=== PATIENT | female | born 1970 | race Caucasian/White ===

== ENCOUNTER 2017-03-31 16:05 | Emergency (ER) | payer MEDICAID ==
[2017-03-31] MEDS ORDERED: ONDANSETRON 4 MG/2 ML VIAL IVP ONE ×2 (16:47→17:44)
[2017-03-31] MEDS ORDERED: NS 1,000 ML IV ONE (16:47)
[2017-03-31 17:02] LABS: % IMMATURE GRANULYOCYTES 0.9 % (0.0-1.1); ABSOLUTE IMMATURE GRANULOCYTES 0.06 10^3/uL (0.00-0.10); ADD DIFF? NO; ADD MORPH? NO; ADD SCAN? NO; ATYPICAL LYMPHOCYTE FLAG 10 (0-99); FRAGMENT RBC FLAG 0 (0-99); HEMATOCRIT 43.2 % (38.0-47.0); HEMOGLOBIN 14.7 g/dL (12.6-16.3); LEFT SHIFT FLG 0 (0-99); LIPEMIA HEMOLYSIS FLAG 90 (0-99); MEAN CELL HEMOGLOBIN 29.6 pg (27.9-34.1); MEAN CELL VOLUME 87.1 fL (81.5-99.8); MEAN PLATELET VOLUME 11.2 fL (8.7-11.7); PLATELET CLUMPS FLAG 0 (0-99); PLATELET COUNT 233 10^3/uL (150-400); RED BLOOD CELL COUNT 4.96 10^6/uL (4.18-5.33); RED CELL DISTRIBUTION WIDTH 13.1 % (11.5-15.2)
[2017-03-31 17:26] LABS: ALANINE AMINOTRANSFERASE 58 IU/L (9-52); ALKALINE PHOSPHATASE 78 IU/L (38-126); ANION GAP 8 mEq/L (8-16); ASPARTATE AMINOTRANSFERASE 33 IU/L (14-46); BILIRUBIN,TOTAL 0.5 mg/dL (0.1-1.4); BILIRUBIN-CONJUGATED 0.1 mg/dL (0.0-0.5); BILIRUBIN-UNCONJUGATED 0.4 mg/dL (0.0-1.1); CALCIUM 9.2 mg/dL (8.5-10.4); CARBON DIOXIDE 25 mEq/l (22-31); CHLORIDE 106 mEq/L (97-110); CREATININE 0.8 mg/dL (0.6-1.0); GLOMERULAR FILTRATION RATE > 60; GLUCOSE 84 mg/dL (70-100); SODIUM 139 mEq/L (134-144); TOTAL PROTEIN 7.6 g/dL (6.3-8.2)
[2017-03-31] MEDS ORDERED: ONDANSETRON 4 MG/2 ML VIAL ONE (17:45)
[2017-03-31 17:49] VITALS: TEMP 98.4; O2SAT 94
[2017-03-31 17:53] LABS: COLOR YELLOW; LEUKOCYTE ESTERASE,URINE NEGATIVE (NEGATIVE); NITRITE,URINE NEGATIVE (NEGATIVE)
[2017-03-31] MEDS ORDERED: IOPAMIDOL (ISOVUE-300) 100 ML BTL ONE ×2 (17:54→18:19)
[2017-03-31 18:06] LABS: MUCUS 4+ /lpf (NONE-1+)
--- NOTE | 2017-03-31 19:02 | EDPHY ---
H & P Stated Complaint: Abd pain, constipation x 1 week;general body aches for "a long time" HPI/ROS: Chief complaint: Abdominal pain History of present illness: This is a 46-year-old female who presents to the emergency department for evaluation of abdominal pain. Patient reports the onset of pain over the last week. She describes diffuse pain. She has had nausea but no vomiting. There has been some constipation. She denies precipitating factors. She denies other associated signs or symptoms including no fevers, no urinary symptoms. She does report she has a hernia some where in her abdomen and is concerned this is part of the pain. She denies other associated signs or symptoms. Review of systems: A 10 point review of systems was obtained and other than described above was negative - Personal History LMP (Females 10-55): Over 28 Days Ago Current Tetanus Diphtheria and Acellular Pertussis (TDAP): Yes Tetanus Vaccine Date: 2011 - Medical/Surgical History Hx Asthma: No Hx Chronic Respiratory Disease: No Hx Diabetes: No Hx Cardiac Disease: No Hx Renal Disease: No Hx Cirrhosis: No Hx Alcoholism: No Hx HIV/AIDS: No Hx Splenectomy or Spleen Trauma: No Other PMH: c section x 2, tonsillectomy, R finger fracture, IBS. depression/ anxiety - Social History Smoking Status: Current every day smoker - Physical Exam Exam: General Appearance: Alert, nontoxic. Eyes: Pupils equal and round no pallor or injection. ENT, Mouth: Mucous membranes moist. Respiratory: There are no retractions, lungs are clear to auscultation. Cardiovascular: Regular rate and rhythm. Gastrointestinal: Bowel sounds are normal. Abdomen is soft, nondistended and nontender to palpation. No masses or hernias are appreciated. Neurological: Alert and oriented x4. Strength and sensation intact and symmetrical. Skin: Warm and dry, no rashes. Musculoskeletal: Neck is supple nontender. Extremities are symmetrical, full range of motion. Psychiatric: Patient is oriented X 3, there is no agitation. Constitutional: Initial Vital Signs Temperature (C) 36.7 C 03/31/17 16:17 Heart Rate 72 03/31/17 16:17 Respiratory Rate 18 03/31/17 16:17 Blood Pressure 96/72 L 03/31/17 16:17 O2 Sat (%) 95 03/31/17 16:17 O2 Delivery Mode Room Air Allergies/Adverse Reactions: aspirin Allergy (Severe, Verified 03/31/17 16:16) hard to breathe Home Medications: Medication Instructions Recorded Sertraline HCl [Zoloft 50mg (*)] 50 mg PO DAILY 03/31/17 hydrOXYzine HCL [Vistaril] 50 mg PO 03/31/17 Medical Decision Making - Diagnostics Imaging Results: Imaging Impressions Abdomen CT 03/31/17 17:48 Impression: 1. Periumbilical fat-containing hernia, without bowel extending through the hernia defect. 2. No CT evidence of appendicitis, abscess, or bowel obstruction. 3. No evidence of constipation or focal fluid collections. 4. Benign calcified granuloma in the left lower lobe. 5. Calcified uterine leiomyoma. Findings and recommendations discussed with Emergency Department physician, KERRI Pereira, at 1835 hours, on March 31, 2017. Final report concurs with initial preliminary interpretation. Imaging: Discussed imaging studies w/ crew caller Radiologist ED Course/Re-evaluation: Patient seen under the supervision of my secondary supervising physician Dr. Chester Brady. Patient presents to the emergency department for 1 week of abdominal pain. On presentation she is nontoxic. She is afebrile and vital signs are stable. Initial abdominal exam is benign. Serial abdominal exams are performed in the ER and remained benign. Blood studies and urinalysis largely unremarkable. CT scan of the abdomen and pelvis with IV contrast is pursued, a small periumbilical hernia containing only fat is noted, no other acute findings are noted. My suspicion for serious pathology requiring further emergency department intervention or inpatient management is low. Patient will be discharged home. Home care is discussed. She is referred to General surgery for further evaluation and care and also asked to follow up with a primary care doctor for recheck. Referral information is provided. Strict return precautions are given. Patient voiced understanding and agreement with plan. Differential Diagnosis: Included but not limited to gastritis, gastroenteritis, biliary tract disease, pancreatitis, colitis, appendicitis, bowel obstruction, hernia with associated complications - Data Points Laboratory Results: Laboratory Results 03/31/17 16:50 03/31/17 16:50 03/31/17 03/31/17 03/31/17 17:22 16:50 16:50 WBC RBC Hgb Hct MCV MCH MCHC RDW Plt Count MPV Neut % (Auto) Lymph % (Auto) Banks % (Auto) Eos % (Auto) Baso % (Auto) Nucleat RBC Rel Count Absolute Neuts (auto) Absolute Lymphs (auto) Absolute Monos (auto) Absolute Eos (auto) Absolute Basos (auto) Absolute Nucleated RBC Immature Gran % Immature Gran # Sodium 139 mEq/L mEq/L (134-144) Potassium 4.0 mEq/L mEq/L (3.5-5.2) Chloride 106 mEq/L mEq/L (97-110) Carbon Dioxide 25 mEq/l mEq/l (22-31) Anion Gap 8 mEq/L mEq/L (8-16) BUN 16 mg/dL mg/dL (7-23) Creatinine 0.8 mg/dL mg/dL (0.6-1.0) Estimated GFR > 60 Glucose 84 mg/dL mg/dL (70-100) Calcium 9.2 mg/dL mg/dL (8.5-10.4) Total Bilirubin 0.5 mg/dL mg/dL (0.1-1.4) Conjugated Bilirubin 0.1 mg/dL mg/dL (0.0-0.5) Unconjugated Bilirubin 0.4 mg/dL mg/dL (0.0-1.1) AST 33 IU/L IU/L (14-46) ALT 58 IU/L H IU/L (9-52) Alkaline Phosphatase 78 IU/L IU/L (38-126) Total Protein 7.6 g/dL g/dL (6.3-8.2) Albumin 4.0 g/dL g/dL (3.5-5.0) Lipase 30.0 IU/L IU/L (23-300) Beta HCG, Qual NEGATIVE Urine Color YELLOW Urine Appearance HAZY Urine pH 6.0 (5.0-7.5) Ur Specific Compton 1.024 (1.002-1.030) Urine Protein NEGATIVE (NEGATIVE) Urine Ketones NEGATIVE (NEGATIVE) Urine Blood NEGATIVE (NEGATIVE) Urine Nitrate NEGATIVE (NEGATIVE) Urine Bilirubin NEGATIVE (NEGATIVE) Urine Urobilinogen 2.0 EU H EU (0.2-1.0) Ur Leukocyte Esterase NEGATIVE (NEGATIVE) Urine RBC 1-3 /hpf /hpf (0-3) Urine WBC 1-3 /hpf /hpf (0-3) Ur Epithelial Cells TRACE /lpf /lpf (NONE-1+) Urine Mucus 4+ /lpf H /lpf (NONE-1+) Urine Glucose NEGATIVE (NEGATIVE) 03/31/17 16:50 WBC 6.61 10^3/uL 10^3/uL (3.80-9.50) RBC 4.96 10^6/uL 10^6/uL (4.18-5.33) Hgb 14.7 g/dL g/dL (12.6-16.3) Hct 43.2 % % (38.0-47.0) MCV 87.1 fL fL (81.5-99.8) MCH 29.6 pg pg (27.9-34.1) MCHC 34.0 g/dL g/dL (32.4-36.7) RDW 13.1 % % (11.5-15.2) Plt Count 233 10^3/uL 10^3/uL (150-400) MPV 11.2 fL fL (8.7-11.7) Neut % (Auto) 66.0 % % (39.3-74.2) Lymph % (Auto) 24.4 % % (15.0-45.0) Banks % (Auto) 6.5 % % (4.5-13.0) Eos % (Auto) 1.7 % % (0.6-7.6) Baso % (Auto) 0.5 % % (0.3-1.7) Nucleat RBC Rel Count 0.0 % % (0.0-0.2) Absolute Neuts (auto) 4.37 10^3/uL 10^3/uL (1.70-6.50) Absolute Lymphs (auto) 1.61 10^3/uL 10^3/uL (1.00-3.00) Absolute Monos (auto) 0.43 10^3/uL 10^3/uL (0.30-0.80) Absolute Eos (auto) 0.11 10^3/uL 10^3/uL (0.03-0.40) Absolute Basos (auto) 0.03 10^3/uL 10^3/uL (0.02-0.10) Absolute Nucleated RBC 0.00 10^3/uL 10^3/uL (0-0.01) Immature Gran % 0.9 % % (0.0-1.1) Immature Gran # 0.06 10^3/uL 10^3/uL (0.00-0.10) Sodium Potassium Chloride Carbon Dioxide Anion Gap BUN Creatinine Estimated GFR Glucose Calcium Total Bilirubin Conjugated Bilirubin Unconjugated Bilirubin AST ALT Alkaline Phosphatase Total Protein Albumin Lipase Beta HCG, Qual Urine Color Urine Appearance Urine pH Ur Specific Compton Urine Protein Urine Ketones Urine Blood Urine Nitrate Urine Bilirubin Urine Urobilinogen Ur Leukocyte Esterase Urine RBC Urine WBC Ur Epithelial Cells Urine Mucus Urine Glucose Medications Given: Discontinued Medications Sodium Chloride (Ns) 1,000 mls @ 0 mls/hr IV ONCE ONE; Wide Open PRN Reason: Protocol Stop: 03/31/17 16:48 Last Admin: 03/31/17 17:14 Dose: 1,000 mls Ondansetron HCl (Zofran) 4 mg IVP EDNOW ONE Stop: 03/31/17 16:48 Last Admin: 03/31/17 17:14 Dose: 4 mg Ondansetron HCl (Zofran) 4 mg IVP EDNOW ONE Stop: 03/31/17 17:45 Last Admin: 03/31/17 17:47 Dose: 4 mg Departure - Departure Disposition: Home, Routine, Self-Care Clinical Impression: Periumbilical hernia Abdominal pain Qualifiers: Abdominal location: generalized Qualified Code(s): R10.84 - Generalized abdominal pain Condition: Good Instructions: Acute Abdominal Pain (ED) Additional Instructions: Follow-up with a primary care doctor and General surgery for continued evaluation and care If symptoms worsen or new symptoms develop return to the emergency room for recheck Referrals: NONE *PRIMARY CARE P,. [Primary Care Provider] - As per Instructions [facility],. [Clinic] - As per Instructions Julissa Mirza MD [Medical Doctor] - As per Instructions
[2017-03-31 19:52] VITALS: BP 140/80; PULSE 64; RESP 16
== END 2017-03-31 19:53 | disposition home or self-care (01) ==
DX: K42.9 Umbilical hernia without obstruction or gangrene (principal); F17.200 Nicotine dependence, unspecified, uncomplicated
CPT/HCPCS: 96374; J2405; Q9967

== ENCOUNTER 2017-04-07 00:27 | Emergency (ER) | payer MEDICAID ==
[2017-04-07 00:40] VITALS: TEMP 97.9
[2017-04-07 01:01] LABS: % IMMATURE GRANULYOCYTES 0.3 % (0.0-1.1); ABSOLUTE IMMATURE GRANULOCYTES 0.02 10^3/uL (0.00-0.10); ADD DIFF? NO; ADD MORPH? NO; ADD SCAN? NO; ATYPICAL LYMPHOCYTE FLAG 30 (0-99); FRAGMENT RBC FLAG 0 (0-99); HEMATOCRIT 42.7 % (38.0-47.0); HEMOGLOBIN 14.4 g/dL (12.6-16.3); LEFT SHIFT FLG 0 (0-99); LIPEMIA HEMOLYSIS FLAG 80 (0-99); MEAN CELL HEMOGLOBIN 29.3 pg (27.9-34.1); MEAN CELL HEMOGLOBIN CONCENTR. 33.7 g/dL (32.4-36.7); MEAN PLATELET VOLUME 11.2 fL (8.7-11.7); PLATELET CLUMPS FLAG 0 (0-99); PLATELET COUNT 256 10^3/uL (150-400); RED BLOOD CELL COUNT 4.91 10^6/uL (4.18-5.33); RED CELL DISTRIBUTION WIDTH 13.3 % (11.5-15.2)
[2017-04-07 01:03] LABS: ANION GAP 12 mEq/L (8-16); CALCIUM 9.6 mg/dL (8.5-10.4); CARBON DIOXIDE 19 mEq/l (22-31); CHLORIDE 111 mEq/L (97-110); ETHANOL SERUM < 10 mg/dL (0-10); GLOMERULAR FILTRATION RATE 59; GLUCOSE 78 mg/dL (70-100); POTASSIUM 4.2 mEq/L (3.5-5.2); SODIUM 142 mEq/L (134-144)
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
[2017-04-07 12:52] VITALS: BP 129/86; PULSE 75; RESP 18; O2SAT 96
== END 2017-04-07 16:00 ==
DX: R45.850 Homicidal ideations (principal); F17.200 Nicotine dependence, unspecified, uncomplicated
CPT/HCPCS: 80305; G0480

== ENCOUNTER 2017-06-07 03:12 | Emergency (ER) | payer MEDICAID ==
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
[2017-06-07 03:57] LABS: % IMMATURE GRANULYOCYTES 0.2 % (0.0-1.1); ABSOLUTE IMMATURE GRANULOCYTES 0.01 10^3/uL (0.00-0.10); ADD DIFF? NO; ADD MORPH? NO; ADD SCAN? NO; ATYPICAL LYMPHOCYTE FLAG 10 (0-99); FRAGMENT RBC FLAG 0 (0-99); HEMATOCRIT 42.5 % (38.0-47.0); HEMOGLOBIN 14.7 g/dL (12.6-16.3); LEFT SHIFT FLG 0 (0-99); LIPEMIA HEMOLYSIS FLAG 90 (0-99); MEAN CELL HEMOGLOBIN 29.6 pg (27.9-34.1); MEAN CELL HEMOGLOBIN CONCENTR. 34.6 g/dL (32.4-36.7); MEAN CELL VOLUME 85.7 fL (81.5-99.8); PLATELET CLUMPS FLAG 0 (0-99); PLATELET COUNT 250 10^3/uL (150-400); RED BLOOD CELL COUNT 4.96 10^6/uL (4.18-5.33); RED CELL DISTRIBUTION WIDTH 13.1 % (11.5-15.2)
[2017-06-07 04:15] LABS: ANION GAP 13 mEq/L (8-16); CALCIUM 9.4 mg/dL (8.5-10.4); CARBON DIOXIDE 22 mEq/l (22-31); CHLORIDE 109 mEq/L (97-110); CREATININE 0.7 mg/dL (0.6-1.0); ETHANOL SERUM < 10 mg/dL (0-10); GLOMERULAR FILTRATION RATE > 60; GLUCOSE 98 mg/dL (70-100); SALICYLATE < 1.0 mg/dL (2.0-20.0); SODIUM 144 mEq/L (134-144)
[2017-06-07 10:38] VITALS: TEMP 98.2
[2017-06-07 16:31] VITALS: BP 120/72; PULSE 60; RESP 14; O2SAT 95
== END 2017-06-07 16:31 | disposition short-term general hospital (02) ==
DX: R45.851 Suicidal ideations (principal); F32.9 Major depressive disorder, single episode, unspecified; F17.200 Nicotine dependence, unspecified, uncomplicated
CPT/HCPCS: 80305; G0480

== ENCOUNTER 2018-02-10 22:16 | Emergency (ER) | payer MEDICAID ==
[2018-02-10 22:28] VITALS: BP 126/85
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
[2018-02-10] MEDS ORDERED: IBUPROFEN 200 MG TAB PO ONE (23:05)
== END 2018-02-10 23:26 | disposition home or self-care (01) ==
LOC: EDUNIT#
DX: S80.812A Abrasion, left lower leg, initial encounter (principal); S50.311A Abrasion of right elbow, initial encounter; S50.312A Abrasion of left elbow, initial encounter; F17.200 Nicotine dependence, unspecified, uncomplicated; V13.5XXA Pedal cycle passenger injured in collision with car, pick-up truck or van in traffic accident, initial encounter; Y92.410 Unspecified street and highway as the place of occurrence of the external cause; Y99.8 Other external cause status; Y93.55 Activity, bike riding

== ENCOUNTER 2018-02-26 09:11 | Emergency (ER) | payer MEDICAID ==
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
[2018-02-26 09:43] LABS: PLATELET COUNT 296 10^3/uL (150-400)
[2018-02-26 16:43] VITALS: BP 138/87
== END 2018-02-26 16:50 | disposition home or self-care (01) ==
LOC: EDUNIT#
DX: F33.2 Major depressive disorder, recurrent severe without psychotic features (principal); F17.200 Nicotine dependence, unspecified, uncomplicated
CPT/HCPCS: 80305; G0480

== ENCOUNTER 2018-06-25 16:49 | Emergency (ER) | payer MEDICAID ==
[2018-06-25] MEDS ORDERED: NS 1,000 ML IV ONE ×2 (17:16→19:24)
[2018-06-25] MEDS ORDERED: IBUPROFEN 600 MG TAB PO ONE (17:17)
--- NOTE | 2018-06-25 17:18 | EDPHY ---
H & P Time Seen by Provider: 06/25/18 17:02 HPI/ROS: CHIEF COMPLAINT: Dehydration, weakness and "fibromyalgia pain" HISTORY OF PRESENT ILLNESS: Patient is a 48-year-old female brought here by EMS after she reportedly felt dizzy and weak was unable to ambulate. She reports that she has been on a"alcohol and meth binge" for the last week and has become very dehydrated lost weight. Few days ago she had her medications stone and has not been taking her fibromyalgia medication as had increased pain to the right side of her body which is chronic in nature. She reports mild chest pain and shortness of breath which she reports is also part of her chronic fibromyalgia pain. She denies any cardiac history including history of syncope, coronary artery disease, stenting or CAB G. She takes no other medications other than Cymbalta. She has no history of alcohol withdrawals. She denies any suicide or homicidal ideation. She is not homeless. She denies any headache or numbness or weakness in her extremities but does report general total body weakness. REVIEW OF SYSTEMS: Constitutional: No fever, no chills. Eyes: No discharge. ENT: No sore throat. Cardiovascular: No chest pain, no palpitations. Respiratory: No cough, no shortness of breath. Gastrointestinal: No abdominal pain, no vomiting. Genitourinary: No hematuria. Musculoskeletal: No back pain. Skin: No rashes. Neurological: No headache. Smoking Status: Current every day smoker Physical Exam: General Appearance: Alert and no distress GCS 15 Eyes: Pupils equal and round no injection. Extraocular muscles intact without nystagmus Respiratory: Chest is nontender, lungs are clear to auscultation. Cardiac: regular rate and rhythm. No lower extremity edema Gastrointestinal: Abdomen is soft and nontender, no masses, bowel sounds normal. Musculoskeletal: Neck is supple and nontender. Extremities have full range of motion and are nontender has no pronator drift. Equal grasp bilaterally Skin: No rashes or lesions. Neuro: Cranial nerves intact Constitutional: Initial Vital Signs Temperature (C) 37.0 C 06/25/18 17:10 Heart Rate 86 06/25/18 17:10 Respiratory Rate 16 06/25/18 17:10 Blood Pressure 134/78 H 06/25/18 17:10 O2 Sat (%) 97 06/25/18 17:10 O2 Delivery Mode Room Air Allergies/Adverse Reactions: aspirin Allergy (Severe, Verified 06/07/17 03:23) hard to breathe Home Medications: Medication Instructions Recorded Cymbalta 02/10/18 Ibuprofen 02/10/18 Tylenol 02/26/18 DULoxetine [Cymbalta 60 MG (*)] 60 mg PO BID #60 cap 06/25/18 Medical Decision Making - Diagnostics Imaging Results: Imaging Impressions Chest X-Ray 06/25/18 17:15 Impression: Clear lungs. No acute process. Head CT 06/25/18 19:23 Impression: Normal brain. No acute intracranial hemorrhage, mass, or evidence of ischemia. Findings discussed with Anu on June 25, 2018 at 7:37 p.m. She will convey the results to physician assistant dean of students, Keven Olivera PA-C. ED Course/Re-evaluation: Patient here with forgetfulness and lightheadedness and overall weakness after 1 -2 weeks of using alcohol and amphetamines. She is alert and oriented with no focal neurologic deficits. CT scan of the head reveals no intracranial bleed or signs of ischemia. She is ambulatory and answer questions appropriately. EKG and lab work reveals no evidence of ACS, acute anemia, electrolyte disturbance. She feels greatly improved after IV hydration. She feels safe going home. She was restarted on her Cymbalta. - Data Points Laboratory Results: Laboratory Results 06/25/18 17:25 06/25/18 17:25 06/25/18 06/25/18 06/25/18 17:29 17:25 17:25 WBC 10.39 10^3/uL H 10^3/uL (3.80-9.50) RBC 5.30 10^6/uL 10^6/uL (4.18-5.33) Hgb 15.9 g/dL g/dL (12.6-16.3) Hct 44.5 % % (38.0-47.0) MCV 84.0 fL fL (81.5-99.8) MCH 30.0 pg pg (27.9-34.1) MCHC 35.7 g/dL g/dL (32.4-36.7) RDW 12.6 % % (11.5-15.2) Plt Count 342 10^3/uL 10^3/uL (150-400) MPV 10.7 fL fL (8.7-11.7) Neut % (Auto) 67.7 % % (39.3-74.2) Lymph % (Auto) 24.4 % % (15.0-45.0) [place] % (Auto) 6.4 % % (4.5-13.0) Eos % (Auto) 0.8 % % (0.6-7.6) Baso % (Auto) 0.3 % % (0.3-1.7) Nucleat RBC Rel Count 0.0 % % (0.0-0.2) Absolute Neuts (auto) 7.04 10^3/uL H 10^3/uL (1.70-6.50) Absolute Lymphs (auto) 2.53 10^3/uL 10^3/uL (1.00-3.00) Absolute Monos (auto) 0.67 10^3/uL 10^3/uL (0.30-0.80) Absolute Eos (auto) 0.08 10^3/uL 10^3/uL (0.03-0.40) Absolute Basos (auto) 0.03 10^3/uL 10^3/uL (0.02-0.10) Absolute Nucleated RBC 0.00 10^3/uL 10^3/uL (0-0.01) Immature Gran % 0.4 % % (0.0-1.1) Immature Gran # 0.04 10^3/uL 10^3/uL (0.00-0.10) Sodium 143 mEq/L mEq/L (135-145) Potassium 3.4 mEq/L mEq/L (3.3-5.0) Chloride 106 mEq/L mEq/L (97-110) Carbon Dioxide 24 mEq/l mEq/l (22-31) Anion Gap 13 mEq/L mEq/L (8-16) BUN 31 mg/dL H mg/dL (7-23) Creatinine 1.1 mg/dL H mg/dL (0.6-1.0) Estimated GFR 53 Glucose 97 mg/dL mg/dL (70-100) Calcium 10.3 mg/dL mg/dL (8.5-10.4) POC Troponin I 0.00 ng/mL ng/mL (0.00-0.08) Medications Given: Discontinued Medications Duloxetine HCl (Cymbalta) 60 mg PO ONCE ONE Stop: 06/26/18 19:25 Last Admin: 06/25/18 19:49 Dose: 60 mg Sodium Chloride (Ns) 1,000 mls @ 0 mls/hr IV EDNOW ONE; Wide Open PRN Reason: Protocol Stop: 06/25/18 17:17 Last Admin: 06/25/18 17:24 Dose: 1,000 mls Sodium Chloride (Ns) 1,000 mls @ 0 mls/hr IV EDNOW ONE; Wide Open PRN Reason: Protocol Stop: 06/25/18 19:25 Last Admin: 06/25/18 19:34 Dose: 1,000 mls Ibuprofen (Motrin) 600 mg PO EDNOW ONE Stop: 06/25/18 17:18 Last Admin: 06/25/18 17:24 Dose: 600 mg Point of Care Test Results: Chemistry 06/25/18 17:29 POC Troponin I 0.00 ng/mL ng/mL (0.00-0.08) Departure - Departure Disposition: Home, Routine, Self-Care Clinical Impression: Polysubstance abuse, Dehydration, Forgetfulness, Chronic pain Condition: Good Instructions: Dehydration (ED) Additional Instructions: Please follow up with her primary care doctor in the next few days to recheck her symptoms. She feeling worse in any way return to the emergency room. Please refrain from using any illicit drugs. Restart her medications Cymbalta as directed. Referrals: Krys Carbone MD [Primary Care Provider] - As per Instructions Prescriptions: DULoxetine [Cymbalta 60 MG (*)] 60 mg PO BID #60 cap
[2018-06-25 17:41] LABS: PLATELET COUNT 342 10^3/uL (150-400)
[2018-06-25] MEDS ORDERED: ACETAMINOPHEN 325 MG TAB ONE (18:03)
[2018-06-25] MEDS ORDERED: IBUPROFEN 200 MG TAB PO ONE (18:03)
[2018-06-25 20:46] VITALS: BP 122/82
[2018-06-26] MEDS ORDERED: DULoxetine 60 MG CAP PO ONE (19:24)
--- NOTE | 2018-06-29 19:30 | CPEKG ---
Test Reason : OPEN Blood Pressure : / mmHG Vent. Rate : 087 BPM Atrial Rate : 088 BPM P-R Int : 109 ms QRS Dur : 083 ms QT Int : 373 ms P-R-T Axes : -12 071 046 degrees QTc Int : 449 ms Sinus rhythm Short LA interval Borderline T wave abnormalities Confirmed by Siri Stone ([id number]) on 06/29/2018 7:30:01 PM Referred By: Confirmed By:Siri Stone
== END 2018-06-25 20:45 | disposition home or self-care (01) ==
LOC: EDUNIT#
DX: F19.10 Other psychoactive substance abuse, uncomplicated (principal); R42 Dizziness and giddiness; E86.0 Dehydration; G89.29 Other chronic pain; R41.3 Other amnesia; M79.7 Fibromyalgia; F17.200 Nicotine dependence, unspecified, uncomplicated
CPT/HCPCS: 84484-PO

== ENCOUNTER 2018-08-08 16:02 | Emergency (ER) | payer MEDICAID, OTHER ==
[2018-08-08 16:41] LABS: PLATELET COUNT 373 10^3/uL (150-400)
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
[2018-08-08] MEDS ORDERED: risperiDONE 2 MG TAB PO ONE (22:38)
[2018-08-08] MEDS ORDERED: IBUPROFEN 600 MG TAB PO ONE (22:38)
[2018-08-09] MEDS ORDERED: IBUPROFEN 600 MG TAB PO ONE ×2 (06:32→06:33)
[2018-08-09] MEDS ORDERED: DULoxetine 60 MG CAP PO ONE (06:33)
[2018-08-09 07:01] VITALS: BP 127/69
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
--- NOTE | 2018-08-09 07:36 | ASMTTCLDSP ---
TLC Discharge Disposition Disposition: Answers: Discharge If Answers: Yes DISCHARGED: Patient/family given suicide hotline info & [facility] brochure? Disposition Notes: Notes: Pt stated commitment or ability to keep self safe, denied thoughts of self harm or harm to others. Pt expressed a desire to f/u with her [facility] psychiatrist, Dr. Carbone on 08/21/18. Pt was given local hotline information and [facility] brochure After an Attempt and encouraged to follow up with [facility]. Discharge Concerns/Recommendations: Notes: In consultation with [facility] ED physician, Herman Uriostegui MD, Dr. Uriostegui concurred that pt does not appear to meet 27-65 criteria requiring psychiatric hospitalization as pt does not appear to be an imminent risk of harm to self/others/gravely disabled due to a mental illness condition. Was patient given the Answers: Not applicable Inpatient Behavioral Health Prohibited Belongings List while in the ED? Date Signed: 08/09/2018 07:36 AM Electronically Signed By:Kirby Benitez
== END 2018-08-09 07:01 | disposition home or self-care (01) ==
DX: R45.851 Suicidal ideations (principal); F15.20 Other stimulant dependence, uncomplicated; R44.1 Visual hallucinations; F32.9 Major depressive disorder, single episode, unspecified; F41.9 Anxiety disorder, unspecified; F17.200 Nicotine dependence, unspecified, uncomplicated; M79.7 Fibromyalgia; R03.0 Elevated blood-pressure reading, without diagnosis of hypertension
CPT/HCPCS: 80305; G0480

== ENCOUNTER 2018-09-28 20:43 | Emergency (ER) | payer MEDICAID ==
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
[2018-09-28] MEDS ORDERED: LORazepam 1 MG TAB PO ONE (22:25)
[2018-09-28 23:08] VITALS: BP 134/67
== END 2018-09-28 23:10 | disposition home or self-care (01) ==
LOC: EEVIPCON 20:43
DX: F15.10 Other stimulant abuse, uncomplicated (principal); T76.91XA Unspecified adult maltreatment, suspected, initial encounter

== ENCOUNTER 2018-10-02 15:04 | Inpatient (IN) | payer MEDICAID ==
[2018-10-02] MEDS ORDERED: LORazepam 1 MG TAB PO ONE (15:24)
--- NOTE | 2018-10-02 15:24 | EDPHY ---
H & P Stated Complaint: M1 Source: Patient, RN/MD, Old records Exam Limitations: No limitations - Personal History Current Tetanus/Diphtheria Vaccine: Unsure Tetanus Vaccine Date: 2011 - Medical/Surgical History Hx Asthma: No Hx Chronic Respiratory Disease: No Hx Diabetes: No Hx Cardiac Disease: No Hx Renal Disease: No Hx Cirrhosis: No Hx Alcoholism: No Hx HIV/AIDS: No Hx Splenectomy or Spleen Trauma: No Other PMH: c section x 2,METHABUSE. depression/anxiety/PTSD, fibromyalgia, osteoarthritis, TONSILITIS - Social History Smoking Status: Current every day smoker Time Seen by Provider: 10/02/18 15:18 HPI/ROS: HPI: This is a 48-year-old female who presents with Chief Complaint: Suicidal ideation Location: psych Quality: Suicidal ideation Duration: Several days Signs and Symptoms: no auditory hallucinations, no visual hallucinations, + suicidal ideation with a plan, no homicidal ideation, no paranoia Timing: Acute on chronic Severity: Moderate to severe Context: Patient reports that she called police today because she feels severely depressed and has been thinking about ending her life. She reports that she has not seen her children in quite some time. Her partner in her are not getting along and she is living alone in the apartment now. Her last meth use was yesterday by inhalant. She reports that she has been crying excessively. She has no support system. She has no other complaints. Police placed patient on M1 hold. Modifying Factors: Comment: ROS: A comprehensive 10 system review of systems is otherwise negative aside from elements mentioned in the history of present illness. MEDICAL/SURGICAL/SOCIAL HISTORY: Medical history: depression/anxiety/PTSD, fibromyalgia, osteoarthritis, TONSILLITIS Surgical history: x2 Social history: Meth abuse. Current every day smoker. Family history noncontributory. CONSTITUTIONAL: Untidy, soft spoke, thin, adult white female who appears older than stated age, awake and alert, no obvious distress HEENT: Atraumatic and normocephalic, PERRL, EOMI. Nares patent; no rhinorrhea; no nasal mucosal edema. Tympanic membranes clear. Oropharynx clear, no exudate and moist pink mucosa. Airway patent. No lymphadenopathy. No meningismus. Cardiovascular: Normal S1/S2, regular rate, regular rhythm, without murmur rub or gallop. PULMONARY/CHEST: Symmetrical and nontender. Clear to auscultation bilaterally. Good air movement. No accessory muscle usage. ABDOMEN: Soft, nondistended, nontender, no rebound, no guarding, no peritoneal signs, no masses or organomegaly. No CVAT. EXTREMITIES: 2/2 pulses, strength 5/5, no deformities, no clubbing, no cyanosis or edema. NEUROLOGICAL: no focal neuro deficits. GCS 15. SKIN: Warm and dry, no erythema. no rash. Good capillary refill. PSYCH: Poor eye contact, no flight of ideas, organized thought process, fair insight and judgment, no auditory hallucinations, no visual hallucinations, + suicidal ideation with a plan, no homicidal ideation, no paranoia (Magdalena Tracy) Constitutional: Initial Vital Signs Temperature (C) 36.9 C 10/02/18 15:09 Heart Rate 84 10/02/18 15:09 Respiratory Rate 16 10/02/18 15:09 Blood Pressure 138/79 H 10/02/18 15:09 O2 Sat (%) 94 10/02/18 15:09 O2 Delivery Mode Room Air Allergies/Adverse Reactions: aspirin Allergy (Severe, Verified 06/07/17 03:23) hard to breathe Home Medications: Medication Instructions Recorded Cymbalta 02/10/18 Ibuprofen 02/10/18 Tylenol 02/26/18 DULoxetine [Cymbalta 60 MG (*)] 60 mg PO BID #60 cap 06/25/18 Medical Decision Making ED Course/Re-evaluation: 1520: Agree with M1 hold as patient is having suicidal thoughts. Labs and UDS ordered. P. O. Ativan 1 mg given 1559: Urine drug screen negative 1605: Labs reviewed and grossly unremarkable. Medically clear for mental health evaluation. 1700: End of Shift. Signed over to Dr. Stone pending mental health evaluation and final disposition. This patient was seen under the supervision of my secondary supervising physician. I evaluated care for this patient independently. Discussed this patient with Dr. Stone who did not see the patient. (Magdalena Tracy) 9:30pm: accepted to [facility]. EMTALA completed. (Siri Stone) Differential Diagnosis: Differential diagnosis includes but is not limited to major depression, anxiety disorder, schizophrenia, bipolar disorder, intoxicant use, suicidal ideation, psychosis, shaka. (Demarcus,Terra) - Data Points Laboratory Results: Laboratory Results 10/02/18 15:28 18 15:28 10/02/1818 10/02/18 15:52 15:28 15:28 WBC RBC Hgb Hct MCV MCH MCHC RDW Plt Count MPV Neut % (Auto) Lymph % (Auto) [place] % (Auto) Eos % (Auto) Baso % (Auto) Nucleat RBC Rel Count Absolute Neuts (auto) Absolute Lymphs (auto) Absolute Monos (auto) Absolute Eos (auto) Absolute Basos (auto) Absolute Nucleated RBC Immature Gran % Immature Gran # Sodium 139 mEq/L mEq/L (135-145) Potassium 3.6 mEq/L mEq/L (3.5-5.2) Chloride 107 mEq/L mEq/L (97-110) Carbon Dioxide 25 mEq/l mEq/l (22-31) Anion Gap 7 mEq/L mEq/L (6-14) BUN 22 mg/dL mg/dL (7-23) Creatinine 0.7 mg/dL mg/dL (0.6-1.0) Estimated GFR > 60 Glucose 88 mg/dL mg/dL (70-100) Calcium 9.3 mg/dL mg/dL (8.5-10.4) Beta HCG, Qual NEGATIVE Urine Opiates Screen NEGATIVE (NEGATIVE) Urine Barbiturates NEGATIVE (NEGATIVE) Ur Phencyclidine Scrn NEGATIVE (NEGATIVE) Ur Amphetamine Screen NEGATIVE (NEGATIVE) U Benzodiazepines Scrn NEGATIVE (NEGATIVE) Urine Cocaine Screen NEGATIVE (NEGATIVE) U Marijuana (THC) Screen NEGATIVE (NEGATIVE) Ethyl Alcohol < 10 mg/dL mg/dL (0-10) 10/02/18 15:28 WBC 7.17 10^3/uL 10^3/uL (3.80-9.50) RBC 4.76 10^6/uL 10^6/uL (4.18-5.33) Hgb 14.2 g/dL g/dL (12.6-16.3) Hct 41.0 % % (38.0-47.0) MCV 86.1 fL fL (81.5-99.8) MCH 29.8 pg pg (27.9-34.1) MCHC 34.6 g/dL g/dL (32.4-36.7) RDW 13.7 % % (11.5-15.2) Plt Count 365 10^3/uL 10^3/uL (150-400) MPV 10.5 fL fL (8.7-11.7) Neut % (Auto) 68.1 % % (39.3-74.2) Lymph % (Auto) 22.2 % % (15.0-45.0) [place] % (Auto) 7.7 % % (4.5-13.0) Eos % (Auto) 1.1 % % (0.6-7.6) Baso % (Auto) 0.6 % % (0.3-1.7) Nucleat RBC Rel Count 0.0 % % (0.0-0.2) Absolute Neuts (auto) 4.89 10^3/uL 10^3/uL (1.70-6.50) Absolute Lymphs (auto) 1.59 10^3/uL 10^3/uL (1.00-3.00) Absolute Monos (auto) 0.55 10^3/uL 10^3/uL (0.30-0.80) Absolute Eos (auto) 0.08 10^3/uL 10^3/uL (0.03-0.40) Absolute Basos (auto) 0.04 10^3/uL 10^3/uL (0.02-0.10) Absolute Nucleated RBC 0.00 10^3/uL 10^3/uL (0-0.01) Immature Gran % 0.3 % % (0.0-1.1) Immature Gran # 0.02 10^3/uL 10^3/uL (0.00-0.10) Sodium Potassium Chloride Carbon Dioxide Anion Gap BUN Creatinine Estimated GFR Glucose Calcium Beta HCG, Qual Urine Opiates Screen Urine Barbiturates Ur Phencyclidine Scrn Ur Amphetamine Screen U Benzodiazepines Scrn Urine Cocaine Screen U Marijuana (THC) Screen Ethyl Alcohol Medications Given: Discontinued Medications Lorazepam (Ativan) 1 mg PO EDNOW ONE Stop: 10/02/18 15:25 Last Admin: 10/02/18 17:06 Dose: 1 mg Departure - Departure Disposition: [facility] IP Clinical Impression: Verbalizes suicidal thoughts, Severe major depression without psychotic features Condition: Fair
[2018-10-02 15:41] LABS: PLATELET COUNT 365 10^3/uL (150-400)
--- NOTE | 2018-10-02 21:03 | ASMTTCLDSP ---
TLC Discharge Disposition Disposition: Answers: Admit Discharge Concerns/Recommendations: Notes: In consultation with [facility] ED physician, Dr Stone and on-call psychiatrist, Dr Jiménez , both concurred that Pt does appear to meet 27-65 criteria requiring psychiatric hospitalization as Pt does appear to be an imminent risk of harm to self due to a mental illness condition. Was patient given the Answers: Yes Inpatient Behavioral Health Prohibited Belongings List while in the ED? For inpatient Dr Patricio MD admission, the following psychiatrist agreed to accept patient for admission to Behavioral Health ([facility]): Type of Hold: Answers: M1/72-hour Hold Hold initiated by: Answers: Police Date Signed: 10/02/2018 09:02 PM Electronically Signed By:Cammy Blair
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
[2018-10-02] MEDS ORDERED: ACETAMINOPHEN 325 MG TAB PO PRN (23:13)
[2018-10-02] MEDS ORDERED: MAGNESIUM HYDROXIDE 30 ML UDCUP PO PRN (23:13)
[2018-10-02] MEDS ORDERED: MAG HYDROX/AL HYDROX/SIMETH 30 ML UDCUP PO PRN (23:13)
[2018-10-02] MEDS ORDERED: LORazepam 0.5 MG TAB PO PRN (23:13)
[2018-10-02] MEDS ORDERED: NICOTINE POLACRILEX 2 MG GUM B PRN (23:13)
[2018-10-02] MEDS ORDERED: OLANZapine DISINTEGR 10 MG TAB PO PRN (23:13)
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
[2018-10-03] MEDS: DULoxetine 30 MG CAP PO SCH ×2 (10:55→20:20)
--- NOTE | 2018-10-03 11:18 | PDMN ---
Medical Necessity Medical necessity: Pt meets IP criteria as of 10/02/2018 per and [facility] B-008- HC (Major Depressive Disorder); est los > 2 mn for SI, pt presents on M1 hold; requiring crisis stabilization, safety and med management.
[2018-10-03] MEDS: IBUPROFEN 600 MG TAB PO SCH ×2 (15:54→20:19)
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
--- NOTE | 2018-10-04 07:55 | SOAPPROG ---
SOAP Progress Note Assessment/Plan: Assessment: Major Depressive Disorder, Severe, complicated by methamphetamine use. Slight improvement noted. (see subjective/objective note). Patient could benefit from continued inpatient hospitalization for crisis stabilization, safety, and medication evaluation. Patient likely discharge tomorrow. Plan: 1. Psychotropic medications: After reviewing options, risks, and benefits patient agrees to continue current medications. No medication changes at this time as more time is needed to determine ongoing tolerability and efficacy. Plan is to continue to observe patient for response and side effects from medications, and ongoing monitoring and evaluation. 2. Review with patient informed consent and recommendations for psychotropic medication treatment listed below 3. Labs: no additional labs at this time 4. Therapy: continue milieu and group therapy 5. Further investigation including gathering information from patients relatives and review of past case records to inform treatment plan. 6. Safety/Wellness plan and follow-up outpatient appointments to be established prior to discharge. Next steps are for patient to meet with in home caregiver to plan a safe discharge plan and establish outpatient services for ongoing treatment. 7. Confer with inpatient treatment team regarding treatment plan. 8. Psychosocial stressors addressed through case supervisor 9. Legal status: M1 10. Consider discharge on if patient is in stable condition, safe, and has a safe discharge plan. 11. Substance abuse interventions: methamphetamine PSYCHOTROPIC MEDICATION TREATMENT INFORMED CONSENT and RECOMMENDATIONS: Review nature of condition, diagnosis, and prognosis. Review nature and purpose of psychotropic medication treatment. Review type of psychotropic medications being ordered. Review risk and benefits of psychotropic medication treatment. Review probable length of time patient will need to take medications. Review risk and benefits of not undergoing psychotropic medication treatment. Review alternative treatments to psychotropic medications. Review psychotropic medications contraindications, drug-drug interactions, side effects, and importance of reporting any side effects to a psychiatric provider or nurse during inpatient hospitalization, and upon discharge to patients psychiatric outpatient provider, primary care provider, or other health hospice spiritual care coordinator. Review importance of asking a nurse, psychiatric provider, or primary care provider any questions or problems concerning the psychotropic medications. Verify patient understands the information that has been provided, and understands, accepts, and agrees to psychotropic medications. Review patients safety plan and importance of patient to report to staff while hospitalized if patient is ever a danger to self/others, or unable to care for self, and upon discharge, the importance for patient to contact [facility] [place] [facility] or [facility], or go to the nearest emergency room, if patient is ever a danger to self/others, or unable to care for self. Recommend that upon discharge patient establish medication management treatment with a psychiatric provider, establishes routine therapy appointments, and follow-up with primary care provider. Verify patient understands and agrees to these recommendations. 10/04/18 07:54 Subjective: Following up with patient for evaluation of depression, anxiety, and safety. Patient reports, "Just feeling really sad." Patient expresses the following psychiatric symptoms severe anxiety and depression. Patient reports taking medications as prescribed, and describes response to medications as fair. Patient does not report undesirable side effects from the medications, and agrees to continue current medications. Patient describes getting 8 hours of sleep, and reports she slept on and off throughout the night. Objective: Vital Signs Temp Pulse Resp BP Pulse Ox 36.5 C 85 16 143/65 H 98 10/04/18 06:00 10/04/18 06:00 10/04/18 06:00 10/04/18 06:00 10/04/18 06:00 NURSING REPORT: Consulted with nursing for update on patients progress in treatment. Nurses report patient is engaged in treatment, is attending groups, slept 8 hours, expresses the following psychiatric symptoms: severe depression, exhibits the following psychiatric symptoms: tearful, flat affect; is eating all meals, is agreeable to medications and taking as prescribed with no report of side effects, with no s/s of EPS/akathisia, and denies SI/HI, denies A/V hallucinations, and denies delusions. MSE: The patient is a well-nourished female looking stated chronological age. Attire is appropriate and dress is hospital garb. Grooming status is appropriate. Ambulation is independent. Gait is normal and coordinated. Posture is normal and relaxed. Eye contact is appropriate. Motor activity is appropriate with purposeful, organized, coordinated movements; with no involuntary movements. Attitude is cooperative and friendly. Patient is attentive and relates well to this interviewer. Language production is spontaneous. Rate is hesitant. Latency of response is prolonged with low volume, and amount is appropriate. Articulation is clear. Patient reports mood as okay with incongruent and flat, constricted affect. Patients thought process is linear and logical, and signs of thought disorder. Patient does not report suicidal/homicidal thoughts, ideas, or plans. Patient denies auditory hallucinations, denies visual hallucinations. Patient denies delusions. Patient does not appear to be attending to internal stimuli. Patients attention and concentration are fair. Patient is oriented to person, place, time, and situation. Patients insight and judgement are poor. SUBSTANCE ABUSE BRIEF INTERVENTION: Brief intervention regarding the risks of methamphetamine abuse is provided to patient with goal to reduce the risk of harm that could result from the continued use of methamphetamine, with the general aim to investigate the problem, raise awareness of problem, develop a solution with the patient, recommend a specific change or activity, and motivate the patient toward change. Assess substance abuse behavior and give supportive advice about harm reduction, recommend a reduction in hazardous/at- risk consumption patterns, and facilitate referrals for additional specialized treatment with respiratory care program director. Intermediate goal is for the patient to quit and attend outpatient substance abuse treatment. Intervention focus on intermediate goals to allow for more immediate success in the treatment process to keep the patient motivated. Review following with patient: Methamphetamine use risks: Short-term: insomnia, irritability, aggressive behavior, hallucinations, delusions, intellectual deficits, anxiety, depression, convulsions, damage to blood vessels in the brain causing strokes, high fevers, collapse of the circulatory system. Long-term: damage to nerve pathways, maybe irreversibly; overstimulation to dopamine impairing dopamine transport and reducing efficiency of dopamine receptors, the reward system becomes worn out, leading to inability to experience pleasure for years. OUTPATIENT SUBSTANCE ABUSE TREATMENT: Patient referred to outpatient provider and treatment for continued treatment related to substance abuse. - Time Spent With Patient Time Spent With Patient: 15 minutes, met with patient individually. - Pending Discharge Pending Discharge Within 24 Hours: Yes Pending Discharge Within 48 Hours: No Pending Discharge Date: 10/05/18 Pending Discharge Time: 11:00 ICD10 Worksheet Patient Problems: Problems Problem Status Onset Stimulant use disorder Acute Major depressive disorder, recurrent episode, severe with anxious distress Chronic
[2018-10-04] MEDS: DULoxetine 30 MG CAP PO SCH ×2 (08:34→21:27)
[2018-10-04] MEDS: IBUPROFEN 600 MG TAB PO SCH ×3 (08:34→21:27)
--- NOTE | 2018-10-04 11:26 | ASMTCMCOM ---
CM Note CM Note Notes: Pt. reports feeling "very achy" adding she did not receive her Cymbalta last night. Pt. reports sleeping "on and off" due to feeling "achy and anxious". Pt. reports eating well and is not having any issues with her current medications. Pt. reports attending groups, adding she likes "most of them". Pt. reports no issues while on the unit. Pt. stated she "sometimes when waking feel adriana weird". Pt. stated she "left a dangerous situation" adding she now has a safe place to go upon discharge. Pt. denied SI, stating "not today", HI, AVH and paranoia. Pt. presents as alert, calm, quiet, fair eye contact,polite, and cooperative. Staff report pt. sleeping 11.5 hours and being medication compliant. Date Signed: 10/04/2018 11:26 AM Electronically Signed By:Kathryn Ashby
--- NOTE | 2018-10-05 08:01 | SOAPPROG ---
SOAP Progress Note Assessment/Plan: Assessment: Major Depressive Disorder, Severe, complicated by methamphetamine use. Slight improvement noted. Patient reports not feeling safe to discharge and could benefit from another day of observation for safety and medication adjustment ( see subjective/objective note). Patient could benefit from continued inpatient hospitalization for crisis stabilization, safety, and medication evaluation. Patient likely discharge tomorrow. Plan: 1. Psychotropic medications: After reviewing options, risks, and benefits patient agrees to continue current medications, and agrees to increase Cymbalta to 60 mg po BID. No medication changes at this time as more time is needed to determine ongoing tolerability and efficacy. Plan is to continue to observe patient for response and side effects from medications, and ongoing monitoring and evaluation. 2. Review with patient informed consent and recommendations for psychotropic medication treatment listed below 3. Labs: no additional labs at this time 4. Therapy: continue milieu and group therapy 5. Further investigation including gathering information from patients relatives and review of past case records to inform treatment plan. 6. Safety/Wellness plan and follow-up outpatient appointments to be established prior to discharge. Next steps are for patient to meet with healthcare corporate account director to plan a safe discharge plan and establish outpatient services for ongoing treatment. 7. Confer with inpatient treatment team regarding treatment plan. 8. Psychosocial stressors addressed through case fitter 9. Legal status: voluntary 10. Consider discharge on Tuesday if patient is in stable condition, safe, and has a safe discharge plan. 11. Substance abuse interventions: methamphetamine PSYCHOTROPIC MEDICATION TREATMENT INFORMED CONSENT and RECOMMENDATIONS: Review nature of condition, diagnosis, and prognosis. Review nature and purpose of psychotropic medication treatment. Review type of psychotropic medications being ordered. Review risk and benefits of psychotropic medication treatment. Review probable length of time patient will need to take medications. Review risk and benefits of not undergoing psychotropic medication treatment. Review alternative treatments to psychotropic medications. Review psychotropic medications contraindications, drug-drug interactions, side effects, and importance of reporting any side effects to a psychiatric provider or nurse during inpatient hospitalization, and upon discharge to patients psychiatric outpatient provider, primary care provider, or other health personal care assistant. Review importance of asking a nurse, psychiatric provider, or primary care provider any questions or problems concerning the psychotropic medications. Verify patient understands the information that has been provided, and understands, accepts, and agrees to psychotropic medications. Review patients safety plan and importance of patient to report to staff while hospitalized if patient is ever a danger to self/others, or unable to care for self, and upon discharge, the importance for patient to contact [place] [facility] or [facility], or go to the nearest emergency room, if patient is ever a danger to self/others, or unable to care for self. Recommend that upon discharge patient establish medication management treatment with a psychiatric provider, establishes routine therapy appointments, and follow-up with primary care provider. Verify patient understands and agrees to these recommendations. 10/05/18 08:00 Subjective: Following up with patient for evaluation of depression, anxiety, and safety. Patient reports, "Feel so depressed (crying). I do not feel safe to leave here. Don't feel safe to be by myself." Patient expresses the following psychiatric symptoms severe anxiety and depression. Patient reports taking medications as prescribed, and describes response to medications as fair. Patient does not report undesirable side effects from the medications, and agrees to continue current medications. Patient requests Cymbalta to be increased to previous dose of 60 mg po BID. Patient reports this dose prior to admission, and reports she was tolerating with good response. Patient describes getting 8 hours of sleep, and reports she slept on and off throughout the night. Objective: Vital Signs Temp Pulse Resp BP Pulse Ox 36.5 C 80 16 123/69 H 99 10/05/18 06:00 10/05/18 06:00 10/05/18 06:00 10/05/18 06:00 10/05/18 06:00 NURSING REPORT: Consulted with nursing for update on patients progress in treatment. Nurses report patient is engaged in treatment, is attending groups, slept 8 hours, expresses the following psychiatric symptoms: severe depression, exhibits the following psychiatric symptoms: tearful, flat affect; is eating all meals, is agreeable to medications and taking as prescribed with no report of side effects, with no s/s of EPS/akathisia, and denies SI/HI, denies A/V hallucinations, and denies delusions. MSE: The patient is a well-nourished female looking stated chronological age. Attire is appropriate and dress is hospital garb. Grooming status is appropriate. Ambulation is independent. Gait is normal and coordinated. Posture is normal and relaxed. Eye contact is appropriate. Motor activity is appropriate with purposeful, organized, coordinated movements; with no involuntary movements. Attitude is cooperative and friendly. Patient is attentive and relates well to this interviewer. Language production is spontaneous. Rate is hesitant. Latency of response is prolonged with low volume, and amount is appropriate. Articulation is clear. Patient reports mood as okay with incongruent and flat, constricted affect. Patients thought process is linear and logical, and signs of thought disorder. Patient does report suicidal ideation; denies homicidal thoughts, ideas, or plans. Patient denies auditory hallucinations, denies visual hallucinations. Patient denies delusions. Patient does not appear to be attending to internal stimuli. Patients attention and concentration are fair. Patient is oriented to person, place, time, and situation. Patients insight and judgement are poor. SUBSTANCE ABUSE BRIEF INTERVENTION: Brief intervention regarding the risks of methamphetamine abuse is provided to patient with goal to reduce the risk of harm that could result from the continued use of methamphetamine, with the general aim to investigate the problem, raise awareness of problem, develop a solution with the patient, recommend a specific change or activity, and motivate the patient toward change. Assess substance abuse behavior and give supportive advice about harm reduction, recommend a reduction in hazardous/at- risk consumption patterns, and facilitate referrals for additional specialized treatment with healthcare associate. Intermediate goal is for the patient to quit and attend outpatient substance abuse treatment. Intervention focus on intermediate goals to allow for more immediate success in the treatment process to keep the patient motivated. Review following with patient: Methamphetamine use risks: Short-term: insomnia, irritability, aggressive behavior, hallucinations, delusions, intellectual deficits, anxiety, depression, convulsions, damage to blood vessels in the brain causing strokes, high fevers, collapse of the circulatory system. Long-term: damage to nerve pathways, maybe irreversibly; overstimulation to dopamine impairing dopamine transport and reducing efficiency of dopamine receptors, the reward system becomes worn out, leading to inability to experience pleasure for years. OUTPATIENT SUBSTANCE ABUSE TREATMENT: Patient referred to outpatient provider and treatment for continued treatment related to substance abuse. - Time Spent With Patient Time Spent With Patient: 15 minutes, met with patient individually. - Pending Discharge Pending Discharge Within 24 Hours: Yes Pending Discharge Within 48 Hours: No Pending Discharge Date: 10/06/18 Pending Discharge Time: 11:00 ICD10 Worksheet Patient Problems: Problems Problem Status Onset Methamphetamine use disorder, severe Acute Stimulant use disorder Acute Major depressive disorder, recurrent episode, severe with anxious distress Chronic
[2018-10-05] MEDS: IBUPROFEN 600 MG TAB PO SCH ×3 (08:36→22:47)
[2018-10-05] MEDS: DULoxetine 30 MG CAP PO SCH ×2 (08:36→19:12)
[2018-10-05] MEDS ORDERED: ARIPiprazole 2 MG TAB PO ONE (11:00)
--- NOTE | 2018-10-05 15:21 | ASMTCMCOM ---
CM Note CM Note Notes: Client will discharge tomorrow to mental health appt at 9:30 with Jaylin at [facility]. Client provided all necessary follow up appts. Date Signed: 10/05/2018 03:20 PM Electronically Signed By:Kiran Jack
[2018-10-06 06:48] VITALS: BP 150/70
[2018-10-06] MEDS: DULoxetine 30 MG CAP PO SCH (07:53)
[2018-10-06] MEDS: ARIPiprazole 2 MG TAB PO SCH ×2 (07:54→08:06)
[2018-10-06] MEDS: IBUPROFEN 600 MG TAB PO SCH (08:00)
--- NOTE | 2018-10-06 10:07 | BDS ---
REASON FOR ADMISSION: From the ED note dated 10/02/2018, patient called police , reported feeling very depressed and was thinking about ending her life. The patient was placed on an M1 hold by police. Patient was admitted involuntarily on an M1 hold due to being a danger to herself. Patient was admitted for safety , crisis stabilization, and medication management. ADMITTING DIAGNOSES: 1. Major depressive disorder, recurrent episode, severe, with anxious distress. 2. Methamphetamine use disorder, severe. ADMISSION PHYSICAL EXAM: The patient was seen for an internal medicine consultation on 10/03/2018, for medical clearance for inpatient psychiatric hospitalization and treatment. Patient was medically cleared for inpatient psychiatric hospitalization and treatment. For further details, please refer to consultation note dated 10/03/2018. ADMISSION LABS: 1. From 10/02/2018, CBC within normal limits. 2. BMP within normal limits. 3. Hemoglobin A1c 5.2, within normal limits. 4. Lipid panel within normal limits, except cholesterol was elevated at 254. LDL cholesterol calculated was elevated at 174. Non-HDL cholesterol was elevated at 188. 5. Beta hCG qualitative test was negative. Toxicology screen negative for all substances screened and negative for ethyl alcohol. MAJOR PROCEDURES OR TESTS: None. HOSPITAL COURSE: The most prominent symptoms and behaviors while the patient was here were reports of severe anxiety and depression. The patient presented with a flat affect, withdrawn, tearful. Treatment modalities utilized during hospitalization were milieu and group therapy. Cymbalta was started at 30 mg p.o. b.i.d. to target mood symptoms, was tolerated with no report of side effects. Cymbalta was then titrated to the patient's previous outpatient dose of 60 mg p.o. b.i.d. The patient reported feeling dizzy and restless at this dose and agreed to decrease the dose to 60 mg p.o. daily. Abilify 2 mg p.o. daily was started to target mood symptoms. The patient reported symptoms of akathisia and agreed to discontinue after 1 dose. The patient has improved considerably since time of admission. Patient reports that she has improved since admission, feels safe to discharge, and she contracts for safety. The patient's overall response to treatment was good. There were no adverse or unexpected results of treatment. The patient was safe throughout her stay, active in treatment, engaged in groups, and was appropriate with staff and other patients. The patient met with the treatment team prior to discharge to assess readiness to discharge and review discharge plan. The treatment team consensus is the patient is in stable condition, has a safe discharge plan, and is ready to discharge today. CONDITION ON DISCHARGE: Patient is in stable condition and is no longer a danger to self or others, and is not gravely disabled due to mental illness. Patient is no longer in need of inpatient level of care, and can be safely and effectively treated within the community. The patients level of risk at time of discharge is low. MSE: The patient is casually dressed and with good hygiene , and looks stated age. Patient is sitting, posture is upright, and position is relaxed. Patient appears awake, alert, and responds appropriately and reasonably during interview. Patient is engaged, relates well to interviewer, and emotional facial expression is appropriate to situation and changes appropriately with topic. Patient is cooperative, makes comfortable eye contact , and movements are voluntary, deliberate, coordinated, and smooth and even with no inappropriate movements. Patient makes laryngeal sounds effortlessly and shares conversation appropriately; pace of conversation is appropriate, and stream of talking is fluent; articulation is clear and understandable; word choice is effortless and appropriate for education level; completes sentences, occasionally pausing to think; rate and volume are appropriate for interview and setting. Patient reports mood as euthymic. Patients affect is stable with full variable range, congruent with mood, and appropriate to speech and circumstances. Patient has linear and logical thinking, with no loose associations, tangential thought, thought blocking, concrete thinking, or any other signs of formal thought disorder. Patient denies suicidal and homicidal ideation, and denies hallucinations and delusions. Patient appears to be a reliable historian with sound judgement and good insight into current condition. Patient has no apparent dysfunction in recent or remote memory noted , and no evidence of gross cognitive dysfunction noted at any point during the interview. DISCHARGE DIAGNOSES: 1. Major depressive disorder, recurrent episode, severe, with anxious distress. 2. Methamphetamine use disorder, severe. CURRENT MEDICATIONS: After reviewing options, risks and benefits with the patient, the patient agrees to continue Cymbalta 60 mg p.o. daily. Patient requests a prescription for this medication at time of discharge. Prescription for 30 days is provided. The prescription is reviewed with the patient at time of discharge to ensure accuracy and patient understanding. DISPOSITION: Patient left hospital independently and voluntarily with the client care manager, who is to walk the patient to her appointment at [facility] today at 9:30 a.m. The patient then plans to return to her apartment. FOLLOWUP: measurement coordinator reports the appropriate outpatient follow-up services have been established and outpatient appointments have been scheduled. The patient received written instructions with times and dates of outpatient follow-up appointments. The following follow-up recommendations were provided to the patient at discharge: Continue psychotropic medications as prescribed and attend appointments as scheduled. Report any side effects to a psychiatric outpatient provider, a primary care provider, or other health home health care physician. Address any questions or problems concerning the psychotropic medications with a psychiatric outpatient provider, a primary care provider, or other health home health care physician. Contact [facility] or [facility], or go to the nearest emergency room, if you are ever a danger to yourself/others, or unable to care for yourself. As soon as possible, establish a routine medication management treatment with a psychiatric provider, establish routine therapy appointments, and follow-up with a primary care provider. SUBSTANCE ABUSE BRIEF INTERVENTION: Brief intervention regarding the risks of methamphetamine abuse is provided to patient with goal to reduce the risk of harm that could result from the continued use of methamphetamine, with the general aim to investigate the problem, raise awareness of problem, develop a solution with the patient, recommend a specific change or activity, and motivate the patient toward change. Assess substance abuse behavior and give supportive advice about harm reduction, recommend a reduction in hazardous/at- risk consumption patterns, and facilitate referrals for additional specialized treatment with client care manager. Intermediate goal is for the patient to quit outpatient substance abuse treatment. Intervention focus on intermediate goals to allow for more immediate success in the treatment process to keep the patient motivated. Review following with patient: Methamphetamine use risks: Short-term: insomnia, irritability, aggressive behavior, hallucinations, delusions, intellectual deficits, anxiety, depression, convulsions, damage to blood vessels in the brain causing strokes, high fevers, collapse of the circulatory system. Long-term: damage to nerve pathways, maybe irreversibly; overstimulation to dopamine impairing dopamine transport and reducing efficiency of dopamine receptors, the reward system becomes worn out, leading to inability to experience pleasure for years. OUTPATIENT SUBSTANCE ABUSE TREATMENT: Patient referred to outpatient provider and treatment for continued treatment related to substance abuse. LEGAL COURSE: The patient was admitted involuntarily on an M1 hold due to being a danger to herself. Patient was discharged today independently and voluntarily. ATTITUDE AT TIME OF DISCHARGE: The patients attitude was positive at time of discharge, and patient reports looking forward to discharging today. The patient reports she feels safe to discharge, is no longer a danger to herself or others, is in stable condition, and contracts for safety. Patient states she will continue medications as prescribed, and establish medication management treatment with an outpatient provider after discharge. Patient reports she understands the information that has been provided to her, and she understands, accepts, and agrees to psychotropic medications. Patient describes internal protective factors as the coping skills she has learned while hospitalized here, and she plans to continue to practice these coping skills after discharge. LABS AND STUDIES: There were no pending labs or studies at time of discharge. ADVANCE DIRECTIVES: There were no advance directives on file, and patient was full code during this hospitalization. The following psychotropic medication treatment informed consent and recommendations were provided to the patient at time of discharge. Patient reports she understands, accepts, and agrees to the information that has been provided. PSYCHOTROPIC MEDICATION TREATMENT INFORMED CONSENT and RECOMMENDATIONS: Review nature of condition, diagnosis, and prognosis. Review nature and purpose of psychotropic medication treatment. Review type of psychotropic medications being prescribed. Review risk and benefits of psychotropic medication treatment. Review probable length of time will need to take medications. Review risk and benefits of not undergoing psychotropic medication treatment. Review alternative treatments to psychotropic medications. Review psychotropic medications contraindications, side effects, and importance of reporting any side effects to a psychiatric provider, primary care provider, or other health home health care physician. Review importance of her asking a psychiatric provider or primary care provider any questions or problems concerning the psychotropic medications. Review importance of reporting to a psychiatric provider, primary care provider, or other health home health care physician if she plans to or becomes . Review safety plan and the importance to contact [facility] or 1 , or go to the nearest emergency room, if ever a danger to yourself/others, or unable to care for yourself. Recommend upon discharge to establish routine medication management treatment with a psychiatric provider, establish routine therapy appointments, and follow-up with a primary care provider. Verify patient understands, accepts, and agrees to the information that has been provided. /[id number]/MODL MTDD
== END 2018-10-06 08:53 | disposition home or self-care (01) | DRG 751 ==
LOC: BBEH 22:35
PROVIDERS: ADMIT Psychiatry & Neurology Psychiatry; ATTEND Psychiatry & Neurology Psychiatry
DX: F33.2 Major depressive disorder, recurrent severe without psychotic features (principal); R45.851 Suicidal ideations; F15.10 Other stimulant abuse, uncomplicated; F41.8 Other specified anxiety disorders; F43.10 Post-traumatic stress disorder, unspecified; E78.5 Hyperlipidemia, unspecified; M79.7 Fibromyalgia; R63.4 Abnormal weight loss; F17.210 Nicotine dependence, cigarettes, uncomplicated; Z23 Encounter for immunization; Z56.0 Unemployment, unspecified
CPT/HCPCS: 80305; G0008; G0480

== ENCOUNTER 2018-11-09 14:56 | Emergency (ER) | payer MEDICAID ==
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
--- NOTE | 2018-11-09 16:18 | ASMTCMCOM ---
CM Note CM Note Notes: This CM met with patient to confirm follow up. Chart reviewed, including referral to P at [facility] in September. Patient states that her PCP is Michelle Devlin and that she has been seen at [facility] (also at [facility]) as well. Patient informs me that she is not feeling suicidal but would like to speak with someone in [place]. I have offered to provide a taxi voucher for patient to go to the crisis center and patient is in agreement with this plan. TRACI Garcia at [facility] re patient's ED visit and discharge to the crisis center CM available for further needs prn Date Signed: 11/09/2018 04:18 PM Electronically Signed By:Melissa Morillo RN
[2018-11-09 16:31] VITALS: BP 130/84
== END 2018-11-09 16:31 | disposition home or self-care (01) ==
LOC: EDUNIT# → EEVIPCON 14:56
DX: S80.11XA Contusion of right lower leg, initial encounter (principal); F15.20 Other stimulant dependence, uncomplicated; Y04.0XXA Assault by unarmed brawl or fight, initial encounter; E86.0 Dehydration; Z59.0 Homelessness

== ENCOUNTER 2018-12-18 07:14 | Emergency (ER) | payer MEDICAID | END 2018-12-18 08:37 | disposition home or self-care (01) ==

== ENCOUNTER 2018-12-19 01:48 | Emergency (ER) | payer MEDICAID ==
[2018-12-19] MEDS ORDERED: ACETAMINOPHEN 500 MG TAB ONE (01:54)
[2018-12-19] MEDS ORDERED: ACETAMINOPHEN 500 MG TAB PO ONE (01:55)
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
[2018-12-19 03:51] VITALS: BP 133/66
== END 2018-12-19 03:46 | disposition home or self-care (01) ==
LOC: EDUNIT#
DX: B34.9 Viral infection, unspecified (principal); R50.9 Fever, unspecified; F17.200 Nicotine dependence, unspecified, uncomplicated; M79.7 Fibromyalgia; F32.9 Major depressive disorder, single episode, unspecified; F41.9 Anxiety disorder, unspecified; F43.10 Post-traumatic stress disorder, unspecified; Z59.0 Homelessness

== ENCOUNTER 2019-02-28 17:47 | Emergency (ER) | payer MEDICAID ==
[2019-02-28] MEDS ORDERED: LORazepam 2 MG/ML INJ IVP ONE (17:55)
[2019-02-28] MEDS ORDERED: PROMETHAZINE HCL 25 MG/ML INJ IVP ONE (17:55)
--- NOTE | 2019-02-28 17:55 | EDPHY ---
H & P Source: Patient, RN/MD, EMS, Old records Exam Limitations: No limitations - Personal History Tetanus Vaccine Date: 2011 - Medical/Surgical History Hx Asthma: No Hx Chronic Respiratory Disease: No Hx Diabetes: No Hx Cardiac Disease: No Hx Renal Disease: No Hx Cirrhosis: No Hx Alcoholism: No Hx HIV/AIDS: No Hx Splenectomy or Spleen Trauma: No Other PMH: c section x 2,METH ABUSE. depression/anxiety/PTSD, fibromyalgia, osteoarthritis, TONSILITIS, R pinky surgery - Social History Smoking Status: Current every day smoker Time Seen by Provider: 02/28/19 17:48 HPI/ROS: HPI: This is a 48-year-old female presents with Chief Complaint: Nausea and dizziness Location: Head Quality: Dizziness Duration: Prior to arrival Signs and Symptoms: no fever, + nausea, + vomiting, + photophobia, no noise sensitivity, no neck stiffness, no ear pain, no tinnitus, no nasal congestion, no sinus pressure, no weakness, no radiation, no aura Timing: Acute, improving Severity: Moderate Context: Patient has a history of methamphetamine abuse, fibromyalgia, homelessness presents via EMS from directly outside the homeless [facility]pc with complaints of sudden onset of nausea accompanied by lightheadedness described as dizziness but denies the room is spinning. She reports that she felt so nauseous that she vomited x1. She has not ate breakfast or lunch today. She was sitting outside in the sun yesterday and today and has a mild sunburn. She admits to marijuana and tobacco use today. She is regularly taking her Lyrica which is "helping my fibromyalgia pain" for the last 1 week. No recent medication changes or additions. Denies any urinary symptoms, worse headache of life, thunderclap headache symptoms, fever, neck stiffness, abdominal pain, diarrhea. Upon arrival patient is asking for a sandwich to eat. Modifying Factors: EMS started IV fluids normal saline Comment: ROS: A comprehensive 10 system review of systems is otherwise negative aside from elements mentioned in the history of present illness. MEDICAL/SURGICAL/SOCIAL HISTORY: Medical history: Methamphetamine ABUSE depression/anxiety/PTSD, fibromyalgia, osteoarthritis, TONSILITIS, R pinky surgery Surgical history: Right pinky surgery, x2 Social history: Homeless. Regular Tobacco and marijuana use. Social alcohol use. Family history noncontributory. CONSTITUTIONAL: Extremely well-appearing middle-aged white female, holding towel over ice, awake and alert, no obvious distress HEENT: Atraumatic and normocephalic, PERRL, EOMI. Nares patent; no rhinorrhea; no nasal mucosal edema. Tympanic membranes clear. Oropharynx clear, no exudate and moist pink mucosa. Airway patent. No lymphadenopathy. No meningismus. Cardiovascular: Normal S1/S2, regular rate, regular rhythm, without murmur rub or gallop. PULMONARY/CHEST: Symmetrical and nontender. Clear to auscultation bilaterally. Good air movement. No accessory muscle usage. ABDOMEN: Soft, nondistended, nontender, no rebound, no guarding, no peritoneal signs, no masses or organomegaly. No CVAT. EXTREMITIES: 2/2 pulses, strength 5/5, no deformities, no clubbing, no cyanosis or edema. NEUROLOGICAL: no focal neuro deficits. GCS 15. Extremely talkative and cranial nerves 2-12 grossly intact. Ambulatory without any deficits. Normal Romberg testing. No pronator drift. Speech fluent. SKIN: Warm and dry, 1st degree sunburn noted to upper arms and neck-no blistering; blanches with palpation; good capillary refill. no rash. (Magdalena Tracy) Constitutional: Initial Vital Signs Temperature (C) 37 C 02/28/19 17:56 Heart Rate 86 02/28/19 17:56 Respiratory Rate 20 02/28/19 17:56 Blood Pressure 129/78 H 02/28/19 17:56 O2 Sat (%) 95 02/28/19 17:56 O2 Delivery Mode Room Air Allergies/Adverse Reactions: aspirin Allergy (Severe, Verified 02/28/19 17:55) hard to breathe Home Medications: Medication Instructions Recorded Ibuprofen [Motrin (*)] 600 mg PO TID 02/10/18 Acetaminophen [Tylenol 325mg (*)] 650 mg PO Q4HRS PRN tab 10/06/18 DULoxetine [Cymbalta 60 MG (*)] 60 mg PO DAILY 30 Days #30 cap 10/06/18 Lyrica 02/28/19 Ondansetron Odt [Zofran Odt 4 mg 4 mg PO Q4 PRN #12 tab 02/28/19 (*)] Medical Decision Making ED Course/Re-evaluation: Vital signs reviewed and stable upon arrival. 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 IV access obtained by EMS who will obtain CMP and lipase Given 1 L normal saline, IV Ativan 1 mg, IV promethazine 12.5 mg Abdomen is soft and nontender and doubt acute/surgical abdomen or need for imaging 1849: Laboratory studies reviewed. No signs of LILIAM/elevated LFTs/electrolyte imbalance/pancreatitis. 1854: Reassessed patient who is sleeping soundly and reports resolution of symptoms. 1944: Passed p.o. Trial without difficulty This patient was seen under the supervision of my secondary supervising physician. I evaluated and cared for this patient with attending. (Magdalena Tracy) Differential Diagnosis: Dizziness including but not limited to peripheral and central causes of vertigo , orthostatic causes including dehydration, and blood loss. (Magdalena Tracy) - Data Points Laboratory Results: Laboratory Results 02/28/19 17:50 02/28/19 17:50 Sodium 139 mEq/L mEq/L (135-145) Potassium 3.9 mEq/L mEq/L (3.5-5.2) Chloride 103 mEq/L mEq/L (97-110) Carbon Dioxide 28 mEq/l mEq/l (22-31) Anion Gap 8 mEq/L mEq/L (6-14) BUN 17 mg/dL mg/dL (7-23) Creatinine 0.6 mg/dL mg/dL (0.6-1.0) Estimated GFR > 60 Glucose 92 mg/dL mg/dL (70-100) Calcium 8.7 mg/dL mg/dL (8.5-10.4) Total Bilirubin 0.1 mg/dL mg/dL (0.1-1.4) AST 23 IU/L IU/L (14-46) ALT 30 IU/L IU/L (9-52) Alkaline Phosphatase 120 IU/L IU/L (38-126) Total Protein 7.2 g/dL g/dL (6.3-8.2) Albumin 3.9 g/dL g/dL (3.5-5.0) Lipase 32 IU/L IU/L (23-300) Medications Given: Discontinued Medications Sodium Chloride (Ns) 1,000 mls @ 0 mls/hr IV EDNOW ONE; Wide Open PRN Reason: Protocol Stop: 02/28/19 17:57 Last Admin: 02/28/19 18:13 Dose: 1,000 mls Lorazepam (Ativan Injection) 1 mg IVP EDNOW ONE Stop: 02/28/19 17:56 Last Admin: 02/28/19 18:13 Dose: 1 mg Ondansetron HCl (Zofran Odt) 4 mg PO EDNOW ONE Stop: 02/28/19 19:55 Last Admin: 02/28/19 19:58 Dose: 4 mg Promethazine HCl (Phenergan) 12.5 mg IVP EDNOW ONE Stop: 02/28/19 17:56 Last Admin: 02/28/19 18:14 Dose: 12.5 mg Departure - Departure Disposition: Home, Routine, Self-Care Clinical Impression: Sunburn of first degree, Decreased oral intake Condition: Good Instructions: Dehydration (ED) Additional Instructions: Consume a minimum of 8-10 glasses of water or electrolyte fluid replacement drinks that include Gatorade, Powerade, Pedialyte. Eat a bland diet for the next 48 hours and then slowly advance as tolerated. Take Zofran 1 tab every 4 hours as needed for nausea, vomiting. Return to the Emergency Room if symptoms do not resolve in the next 72 hours, you spike a fever > 102 F, or experience intractable abdominal pain/nausea/ vomiting. Referrals: Michelle Devlin, [employer] [Primary Care Provider] - 2-3 days, if not improved Prescriptions: Ondansetron Odt [Zofran Odt 4 mg (*)] 4 mg PO Q4 PRN #12 tab PRN Reason: Nausea/Vomiting, Use 1st
[2019-02-28] MEDS ORDERED: NS 1,000 ML IV ONE (17:56)
[2019-02-28] MEDS ORDERED: ONDANSETRON DISINTEGRATING 4 MG TAB PO ONE (19:54)
[2019-02-28 19:57] VITALS: BP 107/62
== END 2019-02-28 20:01 | disposition home or self-care (01) ==
LOC: EDUNIT#
DX: L55.0 Sunburn of first degree (principal); E86.9 Volume depletion, unspecified; M79.7 Fibromyalgia; R63.8 Other symptoms and signs concerning food and fluid intake; F15.10 Other stimulant abuse, uncomplicated; F12.90 Cannabis use, unspecified, uncomplicated; F17.200 Nicotine dependence, unspecified, uncomplicated; Z59.0 Homelessness
CPT/HCPCS: 96374; J2060; J2550

== ENCOUNTER 2019-03-06 17:05 | Emergency (ER) | payer MEDICAID ==
--- NOTE | 2019-03-06 17:21 | EDPHY ---
H & P Stated Complaint: N/V/vertigo Time Seen by Provider: 03/06/19 17:19 HPI/ROS: CHIEF COMPLAINT: "I want to spew" HISTORY OF PRESENT ILLNESS: 48-year-old female history of homelessness, methamphetamine abuse, fibromyalgia, arrives from the senior care complaining of nausea, vomiting, photophobia. No headache. She reports recurrent episodes of similar. Was seen emergency department 6 days ago for similar complaints treated and discharged feeling better. She denies abdominal pain. Denies head injury. Denies major minor head or neck trauma or injury. REVIEW OF SYSTEMS: 10 systems reviewed and negative with the exception of the elements mentioned in the history of present illness PAST MEDICAL & SURGICAL HISTORY: Fibromyalgia. SOCIAL HISTORY:History of methamphetamine abuse denies recent usage . Homeless PHYSICAL EXAM (Prior to examination, patient consented to physical exam, hands were washed and my usual and customary physical exam procedures followed) 1) GENERAL: Well-developed, well-nourished, alert and oriented. Sitting in a darkened room with her eyes covered. 2) HEAD: Normocephalic, atraumatic 3) HEENT: Pupils equal, round, reactive to light bilaterally. Sclera anicteric. Nasopharynx, oropharynx, clear, no lesions. Dry mucous membranes. 4) NECK: Full range of motion, no meningeal signs. 5) LUNGS: Clear auscultation bilaterally, no wheezes, no rhonchi, no retractions. 6) HEART: Regular rate and rhythm, no murmur, no heave, no gallop. 7) ABDOMEN: No guarding, no rebound, no focal tenderness, negative McBurney's, negative Hernadez's, negative Rovsing's, negative peritoneal sign, 8) MUSCULOSKELETAL: Moving all extremities, no focal areas of tenderness, no obvious trauma. No peripheral edema or discoloration. 9) BACK: No CVA tenderness, no midline vertebral tenderness, no fluctuance, no step-off, no obvious trauma, no visual or palpable abnormality. 10) SKIN: No rash, no petechiae. 11) Psychiatric: Patient is oriented X 3, there is no agitation. 12) NEURO: Awake, alert, and oriented to person, place and time. Answers questions appropriately. There were no obvious focal neurologic abnormalities. No cerebellar dysfunction. Cranial nerves 2 through to 12 intact. Normal steady gait. Upper and lower extremities bilaterally with strength 5 / 5, reflexes 2+. DIFFERENTIAL DIAGNOSIS: In no particular order, including but not limited to subarachnoid hemorrhage, migraine headache, tension headache and infectious causes such as meningitis, pharyngitis and sinusitis. The patient understands that this diagnosis is provisional and can never be 100% accurate. Usual and customary warnings were given concerning the clinical impression and all the patient's questions were answered. The patient was instructed to return to the emergency department should her symptoms worsen or return, or develop any new symptoms, otherwise to followup as directed in discharge instructions. This is a partial list of diagnoses considered. These considerations are based on history, physical exam, past history and reassessment. - Personal History Tetanus Vaccine Date: 2011 - Medical/Surgical History Hx Asthma: No Hx Chronic Respiratory Disease: No Hx Diabetes: No Hx Cardiac Disease: No Hx Renal Disease: No Hx Cirrhosis: No Hx Alcoholism: No Hx HIV/AIDS: No Hx Splenectomy or Spleen Trauma: No Other PMH: c section x 2,METH ABUSE. depression/anxiety/PTSD, fibromyalgia, osteoarthritis, TONSILITIS, R pinky surgery - Social History Smoking Status: Current every day smoker Constitutional: Initial Vital Signs Temperature (C) 36.3 C 03/06/19 17:09 Heart Rate 81 03/06/19 17:09 Respiratory Rate 16 03/06/19 17:09 Blood Pressure 131/60 H 03/06/19 17:09 O2 Sat (%) 96 03/06/19 17:09 O2 Delivery Mode Room Air O2 (L/minute) 2 Allergies/Adverse Reactions: aspirin Allergy (Severe, Verified 03/06/19 17:09) hard to breathe Home Medications: Medication Instructions Recorded Ibuprofen [Motrin (*)] 600 mg PO TID 02/10/18 Acetaminophen [Tylenol 325mg (*)] 650 mg PO Q4HRS PRN tab 10/06/18 DULoxetine [Cymbalta 60 MG (*)] 60 mg PO DAILY 30 Days #30 cap 10/06/18 Lyrica 02/28/19 Ondansetron Odt [Zofran Odt 4 mg 4 mg PO Q4 PRN #12 tab 02/28/19 (*)] Promethazine HCl [Phenergan] 25 mg PO Q6 #7 tab 03/06/19 Medical Decision Making ED Course/Re-evaluation: 6:57 p.m.: Patient was re-evaluated with serial exams. I Reviewed her old medical records. At this time she is resting comfortably, easily woken. States that she is asymptomatic would like to leave. She is able to tolerate oral intake. I re-examined her abdomen which is soft no guarding no rebound. Neurologic examination performed , and she remains nonfocal. At this time I do not think that imaging is indicated. Think the patient can be safely discharged at this time. Doubt acute surgical abdominal pathology. Doubt acute pancreatitis. 10:00 p.m.: The patient was somnolent emergency department was given time to sleep. She is awake at this time ambulating the bathroom and plan will be discharge.She feels comfortable being discharged. Care of patient under supervision of primary supervising physician Dr David Colorado. - Data Points Laboratory Results: Laboratory Results 03/06/19 17:18 03/06/19 17:18 03/06/19 03/06/19 03/06/19 17:18 17:18 17:18 WBC 9.56 10^3/uL H 10^3/uL (3.80-9.50) RBC 4.49 10^6/uL 10^6/uL (4.18-5.33) Hgb 13.2 g/dL g/dL (12.6-16.3) Hct 38.9 % % (38.0-47.0) MCV 86.6 fL fL (81.5-99.8) MCH 29.4 pg pg (27.9-34.1) MCHC 33.9 g/dL g/dL (32.4-36.7) RDW 13.2 % % (11.5-15.2) Plt Count 425 10^3/uL H 10^3/uL (150-400) MPV 10.4 fL fL (8.7-11.7) Neut % (Auto) 46.3 % % (39.3-74.2) Lymph % (Auto) 43.7 % % (15.0-45.0) Talbot % (Auto) 6.0 % % (4.5-13.0) Eos % (Auto) 2.0 % % (0.6-7.6) Baso % (Auto) 0.5 % % (0.3-1.7) Nucleat RBC Rel Count 0.0 % % (0.0-0.2) Absolute Neuts (auto) 4.43 10^3/uL 10^3/uL (1.70-6.50) Absolute Lymphs (auto) 4.18 10^3/uL H 10^3/uL (1.00-3.00) Absolute Monos (auto) 0.57 10^3/uL 10^3/uL (0.30-0.80) Absolute Eos (auto) 0.19 10^3/uL 10^3/uL (0.03-0.40) Absolute Basos (auto) 0.05 10^3/uL 10^3/uL (0.02-0.10) Absolute Nucleated RBC 0.00 10^3/uL 10^3/uL (0-0.01) Immature Gran % 1.5 % H % (0.0-1.1) Immature Gran # 0.14 10^3/uL H 10^3/uL (0.00-0.10) Sodium 137 mEq/L mEq/L (135-145) Potassium 3.2 mEq/L L mEq/L (3.5-5.2) Chloride 105 mEq/L mEq/L (97-110) Carbon Dioxide 23 mEq/l mEq/l (22-31) Anion Gap 9 mEq/L mEq/L (6-14) BUN 21 mg/dL mg/dL (7-23) Creatinine 0.6 mg/dL mg/dL (0.6-1.0) Estimated GFR > 60 Glucose 112 mg/dL H mg/dL (70-100) Calcium 8.8 mg/dL mg/dL (8.5-10.4) Total Bilirubin 0.2 mg/dL mg/dL (0.1-1.4) Conjugated Bilirubin 0.0 mg/dL mg/dL (0.0-0.5) Unconjugated Bilirubin 0.2 mg/dL mg/dL (0.0-1.1) AST 28 IU/L IU/L (14-46) ALT 39 IU/L IU/L (9-52) Alkaline Phosphatase 127 IU/L H IU/L (38-126) Total Protein 7.5 g/dL g/dL (6.3-8.2) Albumin 4.2 g/dL g/dL (3.5-5.0) Lipase 45 IU/L IU/L (23-300) Beta HCG, Qual NEGATIVE Medications Given: Discontinued Medications Sodium Chloride (Ns) 1,000 mls @ 0 mls/hr IV ONCE ONE PRN Reason: Wide Open Stop: 03/06/19 17:19 Last Admin: 03/06/19 17:26 Dose: 1,000 mls Lorazepam (Ativan Injection) 1 mg IVP EDNOW ONE Stop: 03/06/19 17:19 Last Admin: 03/06/19 17:27 Dose: 1 mg Promethazine HCl (Phenergan) 25 mg IVP EDNOW ONE Stop: 03/06/19 17:19 Last Admin: 03/06/19 17:26 Dose: 25 mg Departure - Departure Disposition: Home, Routine, Self-Care Clinical Impression: Nausea & vomiting Condition: Good Instructions: Promethazine (By injection), Acute Nausea and Vomiting (ED) Additional Instructions: Seek immediate medical attention if you develop new or worsening symptoms, if you develop fevers, chills, inability to tolerate oral intake or any other symptoms that concerns you. Referrals: Michelle Devlin NP [Primary Care Provider] - 1-2 days without fail Prescriptions: Promethazine HCl [Phenergan] 25 mg PO Q6 #7 tab
[2019-03-06 17:25] LABS: PLATELET COUNT 425 10^3/uL (150-400)
[2019-03-06] MEDS: NS 1,000 ML IV ONE (17:26)
[2019-03-06] MEDS: PROMETHAZINE HCL 25 MG/ML INJ IVP ONE (17:26)
[2019-03-06] MEDS: LORazepam 2 MG/ML INJ IVP ONE (17:27)
[2019-03-06] MEDS ORDERED: AMMONIA AROMATIC 1 EACH AMP IH ONE (18:49)
[2019-03-06 22:14] VITALS: BP 126/80
== END 2019-03-06 22:00 | disposition home or self-care (01) ==
LOC: EDBD → EDUNIT#
DX: R11.2 Nausea with vomiting, unspecified (principal); E86.9 Volume depletion, unspecified; Z59.0 Homelessness
CPT/HCPCS: 96374; J2060; J2550

== ENCOUNTER 2019-03-13 17:36 | Emergency (ER) | payer MEDICAID ==
--- NOTE | 2019-03-13 17:38 | EDPHY ---
HPI/HX/ROS/PE/MDM Narrative: CHIEF COMPLAINT: Nausea and dizziness following marijuana use. HPI: This patient is a homeless 48-year-old female with history of fibromyalgia, depression, and methamphetamine abuse. She arrives today via EMS from the snf complaining of dizziness, nausea, and photophobia following marijuana use one hour prior to arrival. She notes she has had similar symptoms after marijuana use in the past and has been evaluated in this emergency department previously for similar symptoms. She denies any co-ingestion of alcohol or illicit substances. She has taken her Lyrica and Cymbalta today as prescribed. She additional complains of generalized uncontrollable twitching. No fever, chest pain, shortness of breath, abdominal pain, or other associated symptoms. Denies recent trauma or illness. REVIEW OF SYSTEMS: A comprehensive 10 system review of systems is otherwise negative aside from elements mentioned in the history of present illness and medical decision making. PMH: Fibromyalgia, depression, and methamphetamine abuse SOCIAL HISTORY: Currently homeless, staying in [place]. PHYSICAL EXAM: General:Patient is alert. She appears disheveled, is wearing sunglasses inside and is shaking and covering her face. ENT:Eyes are normal to inspection. ENT inspection normal. Neck: Normal inspection. Full range of motion. Respiratory:No respiratory distress. Breath sounds normal bilaterally. Cardiovascular: Regular rate and rhythm. Strong peripheral pulses. Normal cap refill. Abdomen:The abdomen is nontender to palpation. There are no peritoneal signs. There are normal bowel sounds. Back: Normal to inspection. No tenderness to palpation. Skin: Normal color. No rash. Warm and dry. Extremities: Normal appearance. Full range of motion. Neuro: Oriented x3. No focal deficits. ED Course: 48 y/o female presents with anxiety, nausea, photophobia following marijuana use. Plan to administer 4mg PO Zofran and 25mg PO Reglan for symptom relief. 18:45 Patient is feeling much better following medication administration. She is comfortable with discharge home at this time. Plan to d/c in good condition. Follow up and return precautions discussed. She is comfortable with this plan. - Data Points Medications Given: Discontinued Medications Ondansetron HCl (Zofran Odt) 4 mg PO EDNOW ONE Stop: 03/13/19 17:40 Last Admin: 03/13/19 17:45 Dose: 4 mg Promethazine HCl (Phenergan) 25 mg PO EDNOW ONE Stop: 03/13/19 17:40 Last Admin: 03/13/19 17:45 Dose: 25 mg General Initial Vital Signs: Initial Vital Signs Temperature (C) 36.6 C 03/13/19 17:41 Heart Rate 89 03/13/19 17:41 Respiratory Rate 16 03/13/19 17:41 Blood Pressure 159/85 H 03/13/19 17:41 O2 Sat (%) 95 03/13/19 17:41 O2 Delivery Mode Room Air Allergies/Adverse Reactions: aspirin Allergy (Severe, Verified 03/06/19 17:09) hard to breathe Home Medications: Medication Instructions Recorded Ibuprofen [Motrin (*)] 600 mg PO TID 02/10/18 Acetaminophen [Tylenol 325mg (*)] 650 mg PO Q4HRS PRN tab 10/06/18 DULoxetine [Cymbalta 60 MG (*)] 60 mg PO DAILY 30 Days #30 cap 10/06/18 Lyrica 02/28/19 Ondansetron Odt [Zofran Odt 4 mg 4 mg PO Q4 PRN #12 tab 02/28/19 (*)] Promethazine HCl [Phenergan] 25 mg PO Q6 #7 tab 03/06/19 Departure - Departure Disposition: Home, Routine, Self-Care Clinical Impression: Marijuana use, Anxiety Condition: Good Instructions: Anxiety (ED) Additional Instructions: Follow up with your primary care provider. Please avoid marijuana use. Return to the emergency department for fever, chest pain, difficulty breathing, or other worsening of condition. Referrals: Michelle Devlin VARITYPIST [Primary Care Provider] - As per Instructions Report Scribed for: Chester Brady Report Scribed by: Monica Wells Date of Report: 03/13/19 Time of Report: 17:49 Physician Review and Approval Statement: Portions of this note were transcribed by an ED scribe. I personally performed the history, physical exam, and medical decision making; and confirm the accuracy of the information in the transcribed note.
[2019-03-13] MEDS ORDERED: ONDANSETRON DISINTEGRATING 4 MG TAB PO ONE (17:39)
[2019-03-13] MEDS ORDERED: PROMETHAZINE HCL 25 MG TAB PO ONE (17:39)
[2019-03-13 18:52] VITALS: BP 149/82
--- NOTE | 2019-03-14 19:26 | ASMTCMCOM ---
CM Note CM Note Notes: Late Entry from 03/14/19: Requested to assist pt w/transportation back to [facility]. CM spoke w/pt and provided a local bus pass. Pt states she is followed by Michelle Devlin at [facility] and plans on following up with them soon. CM provided pt with a [facility] pamphlet. CM called [facility] today (03/14/19) and pt was last seen at their [facility] on 02/21/19 and pt has an appt scheduled for 03/21/19. Date Signed: 03/14/2019 07:25 PM Electronically Signed By:Alta Machado RN
== END 2019-03-13 18:51 | disposition home or self-care (01) ==
LOC: EDUNIT#
DX: F12.10 Cannabis abuse, uncomplicated (principal); F41.9 Anxiety disorder, unspecified; M79.7 Fibromyalgia; F32.9 Major depressive disorder, single episode, unspecified; Z59.0 Homelessness